=== PATIENT | female | born 1960 | race Caucasian/White ===

== ENCOUNTER 2016-07-12 13:56 | Outpatient (CLI) | payer OTHER ==
--- NOTE | 2016-07-12 15:27 | DIAGNOSTIC IMAGING REPORT ---
PROCEDURE: US ABDOMEN ULTRASOUND-COMPLETE INDICATION: ABD PAIN TECHNIQUE: Morin scale and color Doppler sonographic images of the abdomen were obtained. COMPARISON: CT [facility] 08/23/2006. FINDINGS: Liver measures 12 cm with mildly increased echogenicity. Normal pancreas and gallbladder. Normal CBD measures 6 mm. Aorta and IVC are patent. Normal hepatopetal flow. Normal kidneys. Right kidney measures 9.8 cm and left kidney 9.2 cm. IMPRESSION: 1. Echogenic liver suggestive of steatosis versus intrinsic liver disease 2. Otherwise negative abdominal ultrasound
--- NOTE | 2016-07-12 15:49 | DIAGNOSTIC IMAGING REPORT ---
PROCEDURE: US COMPLETE PELVIC W/TRANSVAG INDICATION: PELVIC PAIN TECHNIQUE: Transabdominal and endovaginal swan scale and color Doppler sonographic images of the female pelvis were obtained. COMPARISON: CT abdomen/pelvis 09/09/2011. FINDINGS: TRANSABDOMINAL SCANS: Hysterectomy. No pelvic mass or free fluid. TRANSVAGINAL SCANS: Normal vaginal cuff. Right ovary measures 3.7 x 2.4 x 2 cm with a 2.6 cm simple ovarian cyst (previously 5 cm). Left ovary measures 2.4 x 1.2 x 2.3 cm. There is vascular flow to both ovaries. No adnexal mass or free fluid the cul-de-sac. IMPRESSION: 1. Hysterectomy 2. Resolving 2.6 cm simple right ovarian cyst.
== END 2016-07-12 23:00 ==
LOC: US SRH 13:56
DX: R10.9 Unspecified abdominal pain (principal); N83.201 Unspecified ovarian cyst, right side

== ENCOUNTER 2016-07-17 13:02 | Outpatient (CLI) | payer OTHER ==
--- NOTE | 2016-07-17 13:40 | DIAGNOSTIC IMAGING REPORT ---
PROCEDURE: MG BILATERAL SCREENING W/CAD INDICATION: SCREENING TECHNIQUE: Bilateral CC and MLO digital views. COMPARISON: Compared to 04/17/2015, 04/23/2013, and 04/15/2012. FINDINGS: Computer-aided detection applied. Moderately dense with a few dystrophic calcifications. No change. IMPRESSION: 1. Negative mammogram. RESULT CODE: 1- Negative. A. A negative report should not delay biopsy if a dominant or clinically suspicious mass is present. 10-15% of cancers are not identified by x-ray. B. A negative report may reinforce clinical impression. C. Adenosis and dense breasts may obscure an underlying neoplasm. D. False positive reports average 6-10%. E.. A yearly screening mammogram is recommended. A reminder letter will be scheduled.
== END 2016-07-17 23:00 ==
LOC: MAM SRH 13:02
DX: Z12.31 Encounter for screening mammogram for malignant neoplasm of breast (principal)